=== PATIENT | male | born 1980 | race Caucasian/White ===

== ENCOUNTER → 2021-04-09 | Outpatient (REF) | payer OTHER | LOC: M SMT 17:22 | PROVIDERS: ATTEND Urology | DX: Z30.2 Encounter for sterilization (principal) ==

== ENCOUNTER → 2021-10-02 | Outpatient (REF) | payer OTHER | LOC: M SFHCDERM 12:21 | PROVIDERS: ATTEND Nurse Practitioner Family | DX: D23.5 Other benign neoplasm of skin of trunk (principal) ==

== ENCOUNTER → 2024-01-25 | Outpatient (REF) | payer OTHER | LOC: M SFHCDERM 13:07 | PROVIDERS: ATTEND Nurse Practitioner Family | DX: L73.9 Follicular disorder, unspecified (principal); Z86.19 Personal history of other infectious and parasitic diseases ==